=== PATIENT | male | born 1955 | race Caucasian/White ===

== ENCOUNTER 2016-08-14 15:03 | Emergency (ER) | payer BC ==
[2016-08-14] MEDS ORDERED: Tetan/Diph/Pertus SYR(Tdap)* 0.5 ML SYR(BOOSTRIX) use SYR IM ONE (15:47)
--- NOTE | 2016-08-14 16:34 | RAD ---
Indication: Large lump anterior proximal tibia region. Swelling with pus discharge. Comparison: No relevant prior exams available on the [facility] for comparison. Technique: LEFT knee: AP, tunnel, lateral, and sunrise views. Report: Negative for fracture. Negative for knee joint effusion. Mild osteophytosis without significant joint space narrowing. Soft tissue swelling at the level of the tibial tuberosity. Chronic fragmentation of the tibial tuberosity possibly reflecting sequela of previous Anais-Schlatter disease. No subcutaneous emphysema evident. No osteolysis or periosteal reaction evident. IMPRESSION: Nonspecific swelling at the level of the tibial tuberosity without compelling radiographic evidence for osteomyelitis. Chronic appearing fragmentation of the tibial tuberosity may reflect sequela of remote Arnold-Schlatter disease.
--- NOTE | 2016-08-14 16:57 | UC ---
Knee Pain HPI - HPI Summary HPI Summary: LEFT KNEE SWELLING 3 -4 WEEKS AGO. SWELLING IN LEFT ([place]SA )AFTER FALL A WEEK AGO, DISCHARGE FROM [place] [facility]. - History of Current Complaint Chief Complaint: UCLowerExtremity Stated Complaint: KNEE COMPLAINT Time Seen by Provider: 08/14/16 15:24 Hx Obtained From: Patient Onset/Duration: Sudden Onset, Lasting Weeks, Still Present Severity Initially: Moderate Severity Currently: Moderate Character: Dull, Aching Aggravating Factor(s): Movement, Weight Bearing Alleviating Factor(s): Rest, Position Associated Signs And Symptoms: Positive: Swelling, Redness. Negative: Fever, Weakness Able to Bear Weight: Yes - Allergies/Home Medications Allergies/Adverse Reactions: Allergies Allergy/AdvReac Type Severity Reaction Status Date / Time No Known Allergies Allergy Verified 08/14/16 15:23 PMH/Surg Hx/FS Hx/Imm Hx Previously Healthy: Yes - Surgical History Surgical History: None - Family History Known Family History: Negative: Diabetes - Social History Occupation: Employed Full-time Lives: With Family Alcohol Use: Occasionally Substance Use Type: None Smoking Status (MU): Never Smoked Tobacco Review of Systems Constitutional: Negative Skin: Negative Eyes: Negative ENT: Negative Respiratory: Negative Cardiovascular: Negative Gastrointestinal: Negative Genitourinary: Negative Motor: Negative Neurovascular: Negative Musculoskeletal: Arthralgia, Edema - (ANTERIOR) LEFT KNEE Neurological: Negative Psychological: Negative All Other Systems Reviewed And Are Negative: Yes Physical Exam Triage Information Reviewed: Yes Appearance: Well-Appearing, Well-Nourished, Pain Distress - MILD Vital Signs: Initial Vital Signs Temp 99.2 F 08/14/16 15:19 Pulse 91 08/14/16 15:19 Resp 18 08/14/16 15:19 BP 132/77 08/14/16 15:19 Pulse Ox 99 08/14/16 15:19 Vital Signs Reviewed: Yes Eye Exam: Normal ENT Exam: Normal ENT: Positive: Normal ENT inspection, Hearing grossly normal, TMs normal Dental Exam: Normal Neck exam: Normal Neck: Positive: Supple, Nontender, No Lymphadenopathy Respiratory Exam: Normal Respiratory: Positive: Chest non-tender, Lungs clear, Normal breath sounds Cardiovascular Exam: Normal Cardiovascular: Positive: RRR, No Murmur, Pulses Normal Abdominal Exam: Normal Abdomen Description: Positive: Nontender, No Organomegaly Musculoskeletal: Positive: Strength Intact, ROM Intact, Edema @ - LEFT ANTERIOR KNEE Neurological Exam: Normal Psychological Exam: Normal Skin: Positive: Other - ERRETHEMATOUS TENDER [place] LEFT ANTERIOR KNEE BURSA Knee Pain Course/Dx - Differential Dx/Diagnosis Differential Diagnosis/HQI/PQRI: Bursitis, Internal Derangement Of Knee, Sprain , Strain Provider Diagnoses: LEFT KNEE BURSITIS Discharge - Discharge Plan Condition: Stable Disposition: HOME Prescriptions: Clindamycin Cap(NF) [Cleocin 300 mg Cap(NF)] 300 mg PO TID #30 cap Patient Education Materials: Knee Bursitis (ED) Referrals: Truman Melara MD [Primary Care Provider] - Ishan Baron MD [Medical Doctor] -
== END 2016-08-14 16:43 | disposition home or self-care (01) ==
LOC: UCEAST 15:03
DX: M70.52 Other bursitis of knee, left knee (principal); Y93.89 Activity, other specified; Z23 Encounter for immunization
CPT/HCPCS: 90715; 96372; 99202; G0463

== ENCOUNTER 2018-06-09 09:48 | Emergency (ER) | payer BC ==
--- NOTE | 2018-06-09 11:31 | UC ---
General HPI - HPI Summary HPI Summary: Pleasant 63 yo gentleman c/o L lateral chest wall / rib pain, s/p s/f onto ice in Sat (today is Friday). Hurt post lat rib wall, but was more or less ok until he sneezed yesterday - pain increased suddenly. Currently feels ok, still hurts, but not sob. Able to do a situp, not a pushup. No abd pain. No neck pain. No pdw. No abd discomfort. No vis / aud issues reported. - History of Current Complaint Chief Complaint: UCBackPain Stated Complaint: BACK /SIDE INJURY Time Seen by Provider: 06/09/18 10:57 Hx Obtained From: Patient Pain Intensity: 4 - Allergy/Home Medications Allergies/Adverse Reactions: Allergies Allergy/AdvReac Type Severity Reaction Status Date / Time Sulfa (Sulfonamide Allergy Rash Verified 06/09/18 10:34 Antibiotics) Home Medications: Home Medications Ibuprofen 400 mg PO ONCE PRN 06/09/18 [History Confirmed 06/09/18] PMH/Surg Hx/FS Hx/Imm Hx Previously Healthy: Yes - Surgical History Surgical History: Yes Surgery Procedure, Year, and Place: deviated septum - Family History Known Family History: Negative: Diabetes - Social History Alcohol Use: Occasionally Substance Use Type: None Smoking Status (MU): Never Smoked Tobacco Review of Systems All Other Systems Reviewed And Are Negative: Yes Constitutional: Positive: Other - see hpi Skin: Positive: Other - see hpi Eyes: Positive: Other - see hpi ENT: Positive: Other - see hpi Respiratory: Positive: Other - see hpi Neurovascular: Positive: Other - see hpi Musculoskeletal: Positive: Other: - see hpi Neurological: Positive: Negative Psychological: Positive: Negative Is Patient Immunocompromised?: No Physical Exam Vital Signs: Initial Vital Signs Temp 97.4 F 06/09/18 10:30 Pulse 72 06/09/18 10:30 Resp 18 06/09/18 10:30 BP 143/70 06/09/18 10:30 Pulse Ox 99 06/09/18 10:30 Course/Dx - Course Course Of Treatment: CXR (see [employer])- no fx of the left ris identified. No pnx is noted. - Diagnoses Provider Diagnosis: Rib injury Discharge - Sign-Out/Discharge Documenting (check all that apply): Patient Departure All imaging exams completed and their final reports reviewed: Yes - Discharge Plan Condition: Stable Disposition: HOME Patient Education Materials: Sprain (ED), Rib Contusion (ED) Referrals: Truman Melara MD [Primary Care Provider] - Additional Instructions: Blood pressure today: 143/70 Follow up with your [facility] physician, recommend within one month recheck. Seek medical attention for worse or new problems in the meantime. Ibuprofen over the counter - as directed on packaging, at least 2x / day for 3 days, then as needed for pain / inflammation. - Billing Disposition and Condition Condition: STABLE Disposition: Home
== END 2018-06-09 12:03 | disposition home or self-care (01) ==
LOC: UCEAST 09:48
DX: S29.9XXA Unspecified injury of thorax, initial encounter (principal); W00.0XXA Fall on same level due to ice and snow, initial encounter; Y92.9 Unspecified place or not applicable; Z88.2 Allergy status to sulfonamides
CPT/HCPCS: 99211; G0463